=== PATIENT | female | born 1975 | race Caucasian/White ===

== ENCOUNTER 2016-09-22 05:58 | Inpatient (IN) | payer OTHER ==
[2016-09-22] MEDS ORDERED: LACTATED RINGERS 1,000 ML IV ONE ×3 (07:39→13:15)
[2016-09-22] MEDS ORDERED: BUPIVACAINE 0.25%-EPI 1:200000 PF 30 ML VIAL SUBQ ONE ×2 (08:43→12:19)
[2016-09-22] MEDS ORDERED: ACETAMINOPHEN 1,000 MG/100 ML VIAL IV ONE (09:26)
[2016-09-22] MEDS ORDERED: GLYCOPYRROLATE 1 MG/5 ML VIAL IVP ONE (09:26)
[2016-09-22] MEDS ORDERED: ONDANSETRON 4 MG/2 ML VIAL IVP ONE (09:26)
[2016-09-22] MEDS ORDERED: ROCURONIUM 50 MG/5 ML VIAL IVP ONE (09:26)
[2016-09-22] MEDS ORDERED: KETAMINE 500 MG/10 ML VIAL IVP ONE (09:26)
[2016-09-22] MEDS ORDERED: MIDAZOLAM 2 MG/2 ML VIAL IVP ONE (09:26)
[2016-09-22] MEDS ORDERED: LIDOCAINE-MPF 2% 5 ML VIAL IM ONE (09:26)
[2016-09-22] MEDS ORDERED: HYDROmorphone 1 MG/ML SYRINGE IVP ONE (09:26)
[2016-09-22] MEDS ORDERED: DEXAMETHASONE 4 MG/ML VIAL IVP ONE (09:26)
[2016-09-22] MEDS ORDERED: KETOROLAC 30 MG/ML VIAL IVP ONE (09:26)
[2016-09-22] MEDS ORDERED: PROPOFOL 200 MG/20 ML VIAL IVP ONE (09:26)
[2016-09-22] MEDS ORDERED: NEOSTIGMINE 1 MG/1 ML 10 ML MDV IVP ONE (09:26)
[2016-09-22] MEDS ORDERED: SODIUM CHLORIDE FLUSH 0.9% 10 ML SYRINGE IVP PRN (12:46)
[2016-09-22] MEDS ORDERED: ACETAMINOPHEN 1,000 MG/100 ML 100 ML IV PRN (12:46)
[2016-09-22] MEDS: ONDANSETRON 4 MG/2 ML VIAL IVP PRN ×2 (13:15→16:58)
[2016-09-22] MEDS ORDERED: ALBUTEROL NEB 2.5 MG/3 ML INH PRN (13:20)
[2016-09-22] MEDS: LACTATED RINGERS 1,000 ML IV SCH ×2 (14:04→18:56)
[2016-09-22] MEDS: SODIUM CHLORIDE FLUSH 0.9% 10 ML SYRINGE IVP SCH ×2 (14:05→22:55)
[2016-09-22] MEDS: oxyCOD/ACETAMIN 5 MG/325 MG TABLET PO PRN ×3 (14:17→20:40)
[2016-09-22] MEDS: HYDROmorphone 1 MG/ML SYRINGE IVP PRN ×2 (16:59→23:56)
[2016-09-22] MEDS: BUDESONIDE 0.5 MG/2 ML NEB INH SCH (18:05)
[2016-09-22] MEDS: NICOTINE 14 MG PATCH TOP SCH ×2 (18:52→22:55)
[2016-09-23] MEDS: HYDROmorphone 1 MG/ML SYRINGE IVP PRN ×4 (04:35→14:35)
[2016-09-23] MEDS: LACTATED RINGERS 1,000 ML IV SCH ×2 (04:36→14:31)
[2016-09-23] MEDS: SODIUM CHLORIDE FLUSH 0.9% 10 ML SYRINGE IVP SCH ×3 (06:33→21:43)
[2016-09-23] MEDS: VENLAFAXINE ER 75 MG CAPSULE PO SCH (09:28)
[2016-09-23] MEDS: DOCUSATE SODIUM 100 MG CAPSULE PO SCH (09:28)
[2016-09-23] MEDS: BUDESONIDE 0.5 MG/2 ML NEB INH SCH ×2 (09:30→19:20)
[2016-09-23] MEDS: oxyCOD/ACETAMIN 5 MG/325 MG TABLET PO PRN ×2 (17:19→21:08)
[2016-09-23] MEDS: ONDANSETRON 4 MG/2 ML VIAL IVP PRN (19:08)
[2016-09-23] MEDS: NICOTINE 14 MG PATCH TOP SCH (19:08)
[2016-09-24] MEDS: LACTATED RINGERS 1,000 ML IV SCH (00:21)
[2016-09-24] MEDS ORDERED: ZOLPIDEM 5 MG TABLET PO SCH (02:00)
[2016-09-24] MEDS: SODIUM CHLORIDE FLUSH 0.9% 10 ML SYRINGE IVP SCH (04:55)
[2016-09-24] MEDS: oxyCOD/ACETAMIN 5 MG/325 MG TABLET PO PRN ×2 (08:37→12:55)
[2016-09-24] MEDS: VENLAFAXINE ER 75 MG CAPSULE PO SCH (08:38)
[2016-09-24] MEDS: DOCUSATE SODIUM 100 MG CAPSULE PO SCH (08:38)
[2016-09-24] MEDS: BUDESONIDE 0.5 MG/2 ML NEB INH SCH (09:00)
== END 2016-09-24 12:56 | disposition home or self-care (01) | DRG 331 ==
PROC: 0DBN4ZZ Excision of Sigmoid Colon, Percutaneous Endoscopic Approach (ICD-10-PCS; principal; 2016-09-22 07:30)
PROC: 0DJD8ZZ Inspection of Lower Intestinal Tract, Via Natural or Artificial Opening Endoscopic (ICD-10-PCS; principal; 2016-09-22 07:30)
DX: K57.32 Diverticulitis of large intestine without perforation or abscess without bleeding (principal); J45.909 Unspecified asthma, uncomplicated; F17.210 Nicotine dependence, cigarettes, uncomplicated; K21.9 Gastro-esophageal reflux disease without esophagitis; F32.9 Major depressive disorder, single episode, unspecified; F41.0 Panic disorder [episodic paroxysmal anxiety]; K64.8 Other hemorrhoids; Z79.51 Long term (current) use of inhaled steroids; Z79.899 Other long term (current) drug therapy; Z90.710 Acquired absence of both cervix and uterus

== ENCOUNTER 2018-03-17 19:51 | Emergency (ER) | payer OTHER ==
[2018-03-17 20:31] LABS: BILIRUBIN,URINE NEGATIVE (NEGATIVE); GLUCOSE, URINE (UA) NEGATIVE (NEGATIVE); KETONES,URINE (UA) NEGATIVE (NEGATIVE); LEUKOCYTE ESTERASE, URINE NEGATIVE (NEGATIVE); NITRITE,URINE NEGATIVE (NEGATIVE); OCCULT BLOOD,URINE NEGATIVE (NEGATIVE); PH,URINE 6.5 PH (5.0-7.5); PROTEIN,URINE NEGATIVE (NEGATIVE); UROBILINOGEN,URINE 0.2 (NORMAL) E.U./dL (NORMAL)
--- NOTE | 2018-03-17 20:33 | ED Physician Documentation ---
PD HPI ABD PAIN - Stated complaint Stated Complaint: FEMALE - Chief complaint Chief Complaint: Abd Pain - History obtained from History obtained from: Patient - History of Present Illness Timing - onset: Last night Timing - duration: Days (1-2) Timing - details: Gradual onset, Still present Quality: Cramping, Aching, Pain Location: LLQ Radiation: No: Lower back, Left flank Improved by: No: Eating, BM Worsened by: Palpation. No: Eating Associated symptoms: Nausea, Diarrhea (loose stools yesterday and some blood in it today). No: Fever, Vomiting, Constipation, Dysuria, Vaginal dc Similar symptoms before: Diagnosis (diverticulitis) Recently seen: Not recently seen Review of Systems Constitutional: reports: Chills, Myalgias. denies: Fever Nose: denies: Rhinorrhea / runny nose, Congestion Throat: denies: Sore throat Respiratory: denies: Cough GI: reports: Abdominal Pain, Nausea, Diarrhea, Bloody / black stool. 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 : None, Other HEENT: None Psych: Depression, Anxiety, Panic attacks Musculoskeletal: None Derm: None - Past Surgical History Past Surgical History: Yes /RESIDENTIAL COUNSELOR: Hysterectomy HEENT: Tonsil/Adenoidectomy - Present Medications Home Medications: Ambulatory Orders Medication Instructions Recorded Confirmed Venlafaxine HCl [Venlafaxine HCl 75 mg PO DAILY 09/22/16 09/22/16 ER] Albuterol 2.5 mg INH Q4H PRN #0 neb 09/24/16 Budesonide [Pulmicort] 0.5 mg INH RTBID neb 09/24/16 Docusate Sodium 250Mg Capsule 250 mg PO DAILY #30 capsule 09/24/16 [Colace 250Mg Capsule] Nicotine 14 mg Patch [Nicoderm] 1 patch TOP Q24H #30 patch 09/24/16 Venlafaxine ER [Effexor ER] 75 mg PO DAILY capsule 09/24/16 oxyCODONE/ACET 5/325 [Percocet 5 2 tab PO Q4H PRN #30 tablet 09/24/16 mg/325 mg] Amox/Clav 875/125 [Augmentin] 1 each PO BID #14 tablet 03/17/18 HYDROcod/ACETAM 5/325 [Morganza 5/325] 1 tab PO Q6H PRN #15 tablet 03/17/18 Naproxen 375 mg PO BID #20 tablet 03/17/18 - Allergies Allergies/Adverse Reactions: Allergies Allergy/AdvReac Type Severity Reaction Status Date / Time bupropion HCl * Allergy Mild Hives Verified 03/17/18 20:01 [From Wellbutrin] ciprofloxacin Allergy infection Verified 03/17/18 20:01 fluconazole Allergy Hives Verified 03/17/18 20:01 metronidazole [From Flagyl] Allergy yeast Verified 03/17/18 20:01 - Social History Does the pt smoke?: No Smoking Status: Current some day smoker Does the pt drink ETOH?: No Does the pt have substance abuse?: No - Immunizations Immunizations are current?: Yes - POLST Patient has POLST: No PD ED PE NORMAL - Vitals Vital signs reviewed: Yes - General General: Alert and oriented X 3, No acute distress, Well developed/nourished - HEENT HEENT: Pharynx benign - Neck Neck: Supple, no meningeal sign, No adenopathy - Cardiac Cardiac: RRR, No murmur - Respiratory Respiratory: Clear bilaterally - Abdomen Abdomen: Normal bowel sounds, Soft, Non distended, No organomegaly, Other (LLQ tender without percussion nor rebound tenderness. Does have tender to palpation. No skin sores. ) - Female Female : Deferred - Rectal Rectal: Deferred - Back Back: No CVA TTP - Derm Derm: Normal color, Warm and dry - Extremities Extremities: No tenderness to palpate, Normal ROM s pain, No edema, No calf tenderness / cord - Neuro Neuro: Alert and oriented X 3, No motor deficit, Normal speech Results - Vitals Vitals: Vital Signs - 24 hr 03/17/18 03/17/18 03/17/18 19:55 22:02 23:25 Temperature 37.3 C 36.7 C Heart Rate 90 65 77 Respiratory 18 16 15 Rate Blood Pressure 117/72 123/88 H 121/77 O2 Saturation 98 100 99 Oxygen O2 Source Room air - Labs Labs: Laboratory Tests 03/17/18 03/17/18 03/17/18 20:15 20:15 20:48 WBC 14.3 H RBC 4.49 Hgb 13.0 Hct 37.6 MCV 83.7 MCH 29.0 MCHC 34.7 RDW 14.2 Plt Count 280 MPV 8.6 Neut # (Auto) 9.5 H Lymph # (Auto) 3.5 [place] # (Auto) 0.8 Eos # (Auto) 0.4 Baso # (Auto) 0.1 Absolute Nucleated RBC 0.00 Nucleated RBC % 0.0 Sodium Potassium Chloride Carbon Dioxide Anion Gap BUN Creatinine Estimated GFR (MDRD) Glucose Calcium Total Bilirubin AST ALT Alkaline Phosphatase Total Protein Albumin Globulin Albumin/Globulin Ratio Lipase Urine Color YELLOW Urine Clarity CLEAR Urine pH 6.5 Ur Specific [place] 1.020 1.020 Urine Protein NEGATIVE Urine Glucose (UA) NEGATIVE Urine Ketones NEGATIVE Urine Occult Blood NEGATIVE Urine Nitrite NEGATIVE Urine Bilirubin NEGATIVE Urine Urobilinogen 0.2 (NORMAL) Ur Leukocyte Esterase NEGATIVE Ur Microscopic Review NOT INDICATED Urine Culture Comments NOT INDICATED Urine HCG, Qual NEGATIVE 03/17/18 20:48 WBC RBC Hgb Hct MCV MCH MCHC RDW Plt Count MPV Neut # (Auto) Lymph # (Auto) [place] # (Auto) Eos # (Auto) Baso # (Auto) Absolute Nucleated RBC Nucleated RBC % Sodium 137 Potassium 3.9 Chloride 103 Carbon Dioxide 27 Anion Gap 7.0 BUN 13 Creatinine 0.7 Estimated GFR (MDRD) 91 Glucose 106 H Calcium 9.4 Total Bilirubin 0.5 AST 21 ALT 31 Alkaline Phosphatase 89 Total Protein 7.4 Albumin 4.0 Globulin 3.4 Albumin/Globulin Ratio 1.2 Lipase 24 Urine Color Urine Clarity Urine pH Ur Specific [place] Urine Protein Urine Glucose (UA) Urine Ketones Urine Occult Blood Urine Nitrite Urine Bilirubin Urine Urobilinogen Ur Leukocyte Esterase Ur Microscopic Review Urine Culture Comments Urine HCG, Qual - Rads (name of study) abd CT Radiology: Prelim report reviewed (diverticula without diverticulitis. No free air reported. ) PD MEDICAL DECISION MAKING - ED course Complexity details: reviewed results (no diverticulitis nor acute process on CT) , considered differential (she has LLQ pain, elevated WBC, some bloody diarrhea with normal UA and history of diverticulitis. I think it is early diverticulitis. Normal CT I think is just eveidence of not complicated diverticulitis and not exclusionary. ), d/w patient - Sepsis Event Vital Signs: Vital Signs - 24 hr 03/17/18 03/17/18 03/17/18 19:55 22:02 23:25 Temperature 37.3 C 36.7 C Heart Rate 90 65 77 Respiratory 18 16 15 Rate Blood Pressure 117/72 123/88 H 121/77 O2 Saturation 98 100 99 Oxygen O2 Source Room air Departure - Departure Disposition: 01 Home, Self Care Clinical Impression: Diverticulitis of gastrointestinal tract Abdominal pain Qualifiers: Abdominal location: left lower quadrant Qualified Code(s): R10.32 - Left lower quadrant pain Condition: Stable Record reviewed to determine appropriate education?: Yes Instructions: ED Diverticulitis Follow-Up: Mark Ogden ARNP [Primary Care Provider] - Prescriptions: Amox/Clav 875/125 [Augmentin] 1 each PO BID #14 tablet HYDROcod/ACETAM 5/325 [[place]za 5/325] 1 tab PO Q6H PRN #15 tablet PRN Reason: Pain Naproxen 375 mg PO BID #20 tablet Comments: The CT scan did not show any obvious diverticulitis. However your symptoms along with the some bloody stool and elevated white count with history of diverticulitis would be pretty suggestive that there is an early infection. Nuno RICHEY says there is no severe infection nor abscess or perforation. Your urine test is normal as well so there is no other obvious cause of infection at this time. We will treated as diverticulitis with naproxen anti-inflammatories and Augmentin antibiotic and add Tylenol or hydrocodone if needed for pain. Follow-up with your primary care if not improving over the next few days. Discharge Date/Time: 03/17/18 23:29
[2018-03-17 20:35] LABS: CLARITY,URINE CLEAR (CLEAR); HCG UR QUAL NEGATIVE
[2018-03-17] MEDS ORDERED: MORPHINE 10 MG/ML VIAL IVP STA ×2 (20:55→23:05)
[2018-03-17] MEDS ORDERED: AMPICILLIN/SULBACTAM 1.5 GM in SODIUM CHLORIDE 0.9% MINIBAG 100 ML IV STA (20:55)
[2018-03-17] MEDS ORDERED: ONDANSETRON 4 MG/2 ML VIAL IVP STA (20:55)
[2018-03-17] MEDS ORDERED: SODIUM CHLORIDE 0.9% 1,000 ML IV ONE (20:55)
[2018-03-17] MEDS ORDERED: KETOROLAC 60 MG/2 ML VIAL IVP STA (20:55)
[2018-03-17 21:03] LABS: BASOPHILS # (AUTO) 0.1 10^3/uL (0.0-0.1); EOSINOPHILS # (AUTO) 0.4 10^3/uL (0.0-0.7); LYMPHOCYTES # (AUTO) 3.5 10^3/uL (1.5-3.5); LYMPHOCYTES % (AUTO) 24.4 %; MEAN CORPUSCULAR HGB CONC 34.7 g/dL (32.0-36.0); MEAN CORPUSCULAR VOLUME 83.7 fL (81.0-99.0); MEAN PLATELET VOLUME 8.6 fL (7.9-10.8); MONOCYTES # (AUTO) 0.8 10^3/uL (0.0-1.0); MONOCYTES % (AUTO) 5.4 %; NEUTROPHILS # (AUTO) 9.5 10^3/uL (1.5-6.6); NEUTROPHILS % (AUTO) 66.2 %; PLT - PLATELET COUNT 280 10^3/uL (130-450); RED BLOOD COUNT 4.49 10^6/uL (4.20-5.40); RED CELL DISTRIBUTION WIDTH 14.2 % (12.0-15.0); WHITE BLOOD COUNT 14.3 x10^3/uL (4.8-10.8)
[2018-03-17 21:13] LABS: ALBUMIN/GLOBULIN RATIO 1.2 (1.0-2.2); BILIRUBIN,TOTAL 0.5 mg/dL (0.2-1.0); CALCIUM 9.4 mg/dL (8.5-10.3); CREATININE 0.7 mg/dL (0.4-1.0); TOTAL PROTEIN 7.4 g/dL (6.7-8.2)
[2018-03-17] MEDS ORDERED: IOPAMIDOL-300 100 ML VIAL ONE (21:54)
[2018-03-17] MEDS ORDERED: IOPAMIDOL-300 100 ML VIAL IVP ONE (22:35)
--- NOTE | 2018-03-17 22:47 | CT Report ---
Reason: LLQ pain; h/o diverticulitis Procedure Date: 03/17/2018 Accession Number: [id number] / [id number] Procedure: CT - Abdomen/Pelvis W/ CPT Code: FULL RESULT: EXAM: CT ABDOMEN AND PELVIS EXAM DATE: 03/17/2018 10:33 PM. CLINICAL HISTORY: LLQ pain; h/o diverticulitis. COMPARISONS: ABDOMEN/PELVIS W/O 05/21/2016 9:34 AM. TECHNIQUE: Routine helical CT imaging was performed through the abdomen and pelvis. IV contrast: 100 ML ISOVUE 300. Enteric contrast: No. Reconstructions: Coronal and sagittal. In accordance with CT protocol optimization, one or more of the following dose reduction techniques were utilized for this exam: automated exposure control, adjustment of mA and/or KV based on patient size, or use of iterative reconstructive technique. FINDINGS: Lung Bases: Peribronchial nodular opacities seen in the right lower lobe. There is no pleural effusion. Liver: Normal. No masses. Gallbladder/Bile Ducts: Unremarkable. Spleen: Normal. Pancreas: Normal. Adrenal Glands: Normal. Kidneys: Normal. No masses or hydronephrosis. Peritoneal Cavity/Bowel: Add diverticula. Status post distal colon resection. There is no bowel obstruction. No pneumoperitoneum or fluid collections. The appendix is well visualized and normal. Pelvic Organs: There is a 3.4 x 3.3 cm left ovarian cyst. A smaller right ovarian cyst is seen. The uterus has been removed. Normal urinary bladder. No pelvic lymphadenopathy or fluid collections. Vasculature: No aneurysms or other significant abnormality. Bones: No significant abnormality. Other: None. IMPRESSION: 1. Scattered diverticula without evidence of diverticulitis. 2. Left ovarian 3.4 cm cyst. 3. No bowel obstruction, fluid collections or acute inflammatory process. RADIA
[2018-03-17] MEDS ORDERED: HYDROcod/ACET 5/325 Prepack 4 PO STA (23:04)
[2018-03-17 23:27] VITALS: BP 121/77
== END 2018-03-17 23:29 | disposition home or self-care (01) ==
LOC: ED 19:51
DX: K57.92 Diverticulitis of intestine, part unspecified, without perforation or abscess without bleeding (principal); F17.200 Nicotine dependence, unspecified, uncomplicated
CPT/HCPCS: 36415; 74177; 80053; 81003; 81025; 83690; 85025; 96365; 96375; 96376; 99283; 99284; Q9967; 81001; 87086

== ENCOUNTER 2020-06-30 12:32 | Emergency (ER) | payer OTHER ==
[2020-06-30] MEDS ORDERED: BACITRACIN ZINC OINT 1 PACKET TOP STA (13:11)
[2020-06-30] MEDS ORDERED: TETANUS/DIPHTHERIA/PERTUSSIS 0.5 ML SYRINGE IM ONE (13:12)
[2020-06-30] MEDS ORDERED: AMOX/CLAV 875 MG/125 MG TABLET PO STA (13:15)
--- NOTE | 2020-06-30 13:15 | ED Physician Documentation ---
History of Present Illness - Stated complaint Stated Complaint: DOG BITE LT HAND - Chief complaint Chief Complaint: Laceration - History obtained from History obtained from: Patient - History of Present Illness Timing: Prior to arrival - Additonal information Additional information: 45-year-old female who is right-handed presents to the emergency department for evaluation of a dog bite wound to the dorsum of the left hand just over the wrist. 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 Unknown last tetanus. Review of Systems Constitutional: reports: Reviewed and negative Ears: reports: Reviewed and negative Nose: reports: Reviewed and negative Throat: reports: Reviewed and negative Cardiac: reports: Reviewed and negative Respiratory: reports: Reviewed and negative GI: reports: Reviewed and negative : reports: Reviewed and negative Skin: reports: Bite / sting Musculoskeletal: reports: Reviewed and negative Neurologic: reports: Reviewed and negative PD PAST MEDICAL HISTORY - Past Medical History Cardiovascular: None Respiratory: Asthma Endocrine/Autoimmune: None GI: GERD, Diverticulitis DIRECTOR SECURITY 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 MANAGEMENT: None : None, Other HEENT: None Psych: Depression, Anxiety, Panic attacks Musculoskeletal: None Derm: None - Past Surgical History Past Surgical History: Yes /DIRECTOR SECURITY RISK MANAGEMENT: Hysterectomy HEENT: Tonsil/Adenoidectomy - Present Medications Home Medications: Ambulatory Orders Medication Instructions Recorded Confirmed Venlafaxine HCl [Venlafaxine HCl 75 mg PO DAILY 09/22/16 06/30/20 ER] Venlafaxine ER [Effexor ER] 75 mg PO DAILY capsule 09/24/16 06/30/20 Amox/Clav 875/125 [Augmentin] 1 each PO Q12H #20 tablet 06/30/20 - Allergies Allergies/Adverse Reactions: Allergies Allergy/AdvReac Type Severity Reaction Status Date / Time bupropion HCl * Allergy Mild Hives Verified 06/30/20 12:39 [From Wellbutrin] ciprofloxacin Allergy infection Verified 06/30/20 12:39 fluconazole Allergy Hives Verified 06/30/20 12:39 metronidazole [From Flagyl] Allergy yeast Verified 06/30/20 12:39 - Social History Does the pt smoke?: Yes Smoking Status: Current every day smoker Does the pt drink ETOH?: No ETOH Use: Wine Does the pt have substance abuse?: No Substance Use and Type: Marijuana - Immunizations Immunizations are current?: No - POLST Patient has POLST: No PD ED PE EXPANDED - Extremities Extremities: Left hand (Puncture wound dorsum left hand just over the wrist on the radial side. Normal flexion extension of wrist. Normal grasp and motor movement of the hand. No snuffbox tenderness.) Results - Vitals Vitals: Vital Signs - 24 hr 06/30/20 12:39 Temperature 37 C Heart Rate 76 Respiratory 18 Rate Blood Pressure 127/89 H O2 Saturation 99 Oxygen O2 Source Room air PD MEDICAL DECISION MAKING - ED course Complexity details: reviewed results, re-evaluated patient, considered differential, d/w patient ED course: 45-year-old female presents to the emergency department for evaluation of a dog bite wound to the dorsum of the left wrist sustained when she was at work this afternoon. 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 The puncture wound was thoroughly irrigated here in the emergency department. I will recommend bacitracin and warm compress over the area. We will also initiate antibiotics. First dose of Augmentin given here in the emergency department. X-ray does not show any acute signs of fracture or foreign body. Emergent return precautions discussed. tetanus utd today Departure - Departure Disposition: 01 Home, Self Care Clinical Impression: Dog bite Qualifiers: Encounter type: initial encounter Qualified Code(s): W54.0XXA - Bitten by dog, initial encounter Condition: Stable Record reviewed to determine appropriate education?: Yes Instructions: ED Bite Dog Prescriptions: Amox/Clav 875/125 [Augmentin] 1 each PO Q12H #20 tablet Comments: Ashlyn your dog bite does carry a risk of developing infection. We irrigated your puncture wound and gave you your first dose of antibiotic here in the emergency department. I would like you to fill the prescription for the antibiotics and begin taking this evening as prescribed. If at any point you have fevers, red streaking redness increased pain or swelling around the puncture wound please return immediately to the ER for a second look. Your tetanus was updated today and is good for the next 7 to 10 years
--- NOTE | 2020-06-30 13:41 | XRAY Report ---
PROCEDURE: Hand 2 View LT INDICATIONS: dog bite TECHNIQUE: 2 views of the hand(s) acquired. COMPARISON: None FINDINGS: Bones: No fractures or dislocations. No suspicious bony lesions. Soft tissues: No suspicious soft tissue calcifications. No unexpected radiopaque foreign bodies. IMPRESSION: No unexpected radiopaque foreign bodies or suspicious bony lesions. Reviewed by: Sana Stewart MD on 06/30/2020 1:[address] [facility] Approved by: Sana Stewart MD on 06/30/2020 1:[address] [facility] Station ID: [id number]
[2020-06-30 14:02] VITALS: BP 116/79
== END 2020-06-30 14:20 | disposition home or self-care (01) ==
LOC: ED 12:32
DX: S61.532A Puncture wound without foreign body of left wrist, initial encounter (principal); W54.0XXA Bitten by dog, initial encounter; Y99.0 Civilian activity done for income or pay; F17.200 Nicotine dependence, unspecified, uncomplicated; Z23 Encounter for immunization
CPT/HCPCS: 1040M; 73120; 90715; A9270; 90471; 99281; 99283

== ENCOUNTER 2020-08-01 08:55 | Emergency (ER) | payer OTHER ==
--- NOTE | 2020-08-01 09:12 | ED Physician Documentation ---
PD HPI NVD - Stated complaint Stated Complaint: DIARRHEA - Chief complaint Chief Complaint: Abd Pain - History obtained from History obtained from: Patient - History of Present Illness Timing - onset: How many days ago (2) Timing - duration: Days (2) Timing - details: Gradual onset, Still present Associated symptoms: Abdominal pain (lower abd left and right), Loss of appetite, Other (soft stool/diarrhea with today some blood to it.). No: Fever, Dysuria, Hematuria Contributing factors: Recent antibiotics (a month ago for dog bite, on Augmentin for 5 days.). No: Sick contact, Bad food, Travel Similar symptoms before: Diagnosis (she states this feels like prior episodes of diverticulitis) Recently seen: Emergency Dept (for dog bite Jun 30, and on augmentin 5 days at that time. No diarrhea at that time.) Review of Systems Constitutional: denies: Fever, Chills Nose: denies: Rhinorrhea / runny nose, Congestion Throat: denies: Sore throat Respiratory: denies: Cough GI: reports: Abdominal Pain, Nausea, Diarrhea (with some blood in it this morning). 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: Hysterectomy HEENT: Tonsil/Adenoidectomy - Present Medications Home Medications: Ambulatory Orders Medication Instructions Recorded Confirmed Venlafaxine HCl [Venlafaxine HCl 150 mg PO DAILY 09/22/16 08/01/20 ER] Amox/Clav 875/125 [Augmentin] 1 each PO Q12H #20 tablet 06/30/20 Amox/Clav 875/125 [Augmentin] 1 each PO Q12H #14 tablet 08/01/20 HYDROcod/ACETAM 5/325 [[place]iss 5/325] 1 ea PO Q6H PRN #18 tablet 08/01/20 Naproxen Sodium 275 mg PO BID #15 tablet 08/01/20 Ondansetron Odt [Zofran] 4 mg TL Q6H PRN #10 tablet 08/01/20 - Allergies Allergies/Adverse Reactions: Allergies Allergy/AdvReac Type Severity Reaction Status Date / Time bupropion HCl * Allergy Mild Hives Verified 08/01/20 09:05 [From Wellbutrin] ciprofloxacin Allergy infection Verified 08/01/20 09:05 fluconazole Allergy Hives Verified 08/01/20 09:05 metronidazole [From Flagyl] Allergy yeast Verified 08/01/20 09:05 - Social History Does the pt smoke?: Yes Smoking Status: Current every day smoker Does the pt drink ETOH?: No Does the pt have substance abuse?: No - Immunizations Immunizations are current?: No - POLST Patient has POLST: No PD ED PE NORMAL - Vitals Vital signs reviewed: Yes - General General: Alert and oriented X 3, No acute distress, Well developed/nourished - Neck Neck: Supple, no meningeal sign, No adenopathy - Cardiac Cardiac: RRR, No murmur - Respiratory Respiratory: Clear bilaterally - Abdomen Abdomen: Normal bowel sounds, Soft, Non distended, No organomegaly, Other (tender lower abd midline, with some tender both left and right. No guarding, percussion nor rebound tenderness. ) - Back Back: No CVA TTP - Derm Derm: Normal color, Warm and dry - Neuro Neuro: Alert and oriented X 3, No motor deficit, Normal speech Results - Vitals Vitals: Vital Signs - 24 hr 08/01/20 08/01/20 08/01/20 09:01 09:55 10:38 Temperature 36.4 C L Heart Rate 72 58 L 61 Respiratory 16 16 16 Rate Blood Pressure 125/81 H 126/88 H 149/83 H O2 Saturation 100 97 100 Oxygen O2 Source Room air - Labs Labs: Laboratory Tests 08/01/20 08/01/20 09:30 09:30 WBC 10.6 RBC 4.77 Hgb 14.1 Hct 43.0 MCV 90.1 MCH 29.6 MCHC 32.8 RDW 13.4 Plt Count 298 MPV 9.7 Neut # (Auto) 6.8 H Lymph # (Auto) 2.6 [place] # (Auto) 0.6 Eos # (Auto) 0.5 Baso # (Auto) 0.1 Absolute Nucleated RBC 0.00 Nucleated RBC % 0.0 Sodium 140 Potassium 4.5 Chloride 103 Carbon Dioxide 27 Anion Gap 10.0 BUN 12 Creatinine 0.8 Estimated GFR (MDRD) 77 L Glucose 96 Calcium 9.4 PD MEDICAL DECISION MAKING - ED course Complexity details: reviewed results, re-evaluated patient (feeling better post meds. Recheck abd still general mild tender lower abd without peritoneal findings. ), considered differential (she feels it is similar to prior diverticulitis. Abd exam nonperitoneal. Not focally tender RLQ. Shared decision to treat as uncomplicated diverticulitis. ), d/w patient Departure - Departure Disposition: 01 Home, Self Care Clinical Impression: Sigmoid diverticulitis, Lower abdominal pain, Bloody diarrhea Condition: Stable Record reviewed to determine appropriate education?: Yes Instructions: Diverticulitis Dc Prescriptions: Amox/Clav 875/125 [Augmentin] 1 each PO Q12H #14 tablet Naproxen Sodium 275 mg PO BID #15 tablet HYDROcod/ACETAM 5/325 [[place] 5/325] 1 ea PO Q6H PRN #18 tablet PRN Reason: Pain Ondansetron Odt [Zofran] 4 mg TL Q6H PRN #10 tablet PRN Reason: Nausea / Vomiting Comments: Stay well-hydrated. Current gastroenterology recommendations states you do not necessarily have to be on a liquids only diet but certainly easy to digest foods. Anti-inflammatories such as naproxen 2 or 3 times daily. To that add Augmentin antibiotic twice daily. Add Tylenol or hydrocodone if needed for pains. Ondansetron if needed for nausea. I would anticipate improvement over the next 2 to 3 days. Recheck if not improved in that timeframe and return if worsening. Discharge Date/Time: 08/01/20 10:44
[2020-08-01] MEDS ORDERED: KETOROLAC 30 MG/ML VIAL IVP STA (09:33)
[2020-08-01] MEDS ORDERED: SODIUM CHLORIDE 0.9% 1,000 ML IV STA (09:33)
[2020-08-01] MEDS ORDERED: HYDROmorphone 1 MG/ML CARPUJECT IVP STA (09:33)
[2020-08-01] MEDS ORDERED: AMPICILLIN/SULBACTAM 3 GM in SODIUM CHLORIDE 0.9% MINIBAG 100 ML IV STA (09:40)
[2020-08-01 09:57] LABS: BASOPHILS # (AUTO) 0.1 10^3/uL (0.0-0.1); BASOPHILS % (AUTO) 0.8 %; EOSINOPHILS # (AUTO) 0.5 10^3/uL (0.0-0.7); EOSINOPHILS % (AUTO) 4.8 %; HGB - HEMOGLOBIN 14.1 g/dL (12.0-16.0); LYMPHOCYTES # (AUTO) 2.6 10^3/uL (1.5-3.5); LYMPHOCYTES % (AUTO) 24.8 %; MEAN CORPUSCULAR HEMOGLOBIN 29.6 pg (27.0-31.0); MEAN CORPUSCULAR HGB CONC 32.8 g/dL (32.0-36.0); MEAN CORPUSCULAR VOLUME 90.1 fL (81.0-99.0); MEAN PLATELET VOLUME 9.7 fL (7.9-10.8); MONOCYTES # (AUTO) 0.6 10^3/uL (0.0-1.0); MONOCYTES % (AUTO) 5.3 %; NEUTROPHILS # (AUTO) 6.8 10^3/uL (1.5-6.6); NEUTROPHILS % (AUTO) 63.8 %; PLT - PLATELET COUNT 298 10^3/uL (130-450); RED BLOOD COUNT 4.77 10^6/uL (4.20-5.40); RED CELL DISTRIBUTION WIDTH 13.4 % (12.0-15.0); WHITE BLOOD COUNT 10.6 x10^3/uL (4.8-10.8)
[2020-08-01 10:21] LABS: CALCIUM 9.4 mg/dL (8.5-10.3); CREATININE 0.8 mg/dL (0.4-1.0)
[2020-08-01 10:39] VITALS: BP 149/83
== END 2020-08-01 10:44 | disposition home or self-care (01) ==
LOC: ED 08:55
DX: K57.33 Diverticulitis of large intestine without perforation or abscess with bleeding (principal); F17.200 Nicotine dependence, unspecified, uncomplicated
CPT/HCPCS: 36415; 80048; 85025; 96365; 96375; 99284; J1170